=== PATIENT | female | born 1980 | race Caucasian/White ===

== ENCOUNTER 2016-09-10 11:26 | Emergency (ER) | payer MEDICAID ==
[~2016-09-10] VITALS: Ht 162.6 cm; Wt 75.0 kg
[2016-09-10 11:33] VITALS: Ht 162.6 cm; Wt 75.0 kg
[2016-09-10] MEDS ORDERED: HYDROmorphONE 1 MG/ML SYG IV STA (12:20)
[2016-09-10] MEDS ORDERED: ONDANSETRON 4 MG INJ IV STA (13:01)
[2016-09-10 13:05] LABS: ALBUMIN 4.3 g/dl (3.3-4.9); BASOPHILS % 0.3 % (0.0-2.0); HEMOGLOBIN 13.5 g/dl (12.0-16.0); LYMPHOCYTES # 3.3 10^3/ul (0.8-2.9); LYMPHOCYTES % 27.9 % (15.0-51.0); MEAN CORPUSCULAR HEMOGLOBIN 29.7 pg (29.0-33.0); MEAN CORPUSCULAR HGB CONC 33.8 g/dl (32.0-37.0); MEAN CORPUSCULAR VOLUME 87.9 fl (82.0-101.0); MEAN PLATELET VOLUME 9.5 fl (7.4-10.4); MONOCYTE # 0.5 10^3/ul (0.3-0.9); MONOCYTES % 4.5 % (0.0-11.0); NEUTROPHILS % 67.3 % (39.0-77.0); PLATELET COUNT 228 10^3/UL (140-440); PROTIME 13.2 Sec (12.2-14.2); RED BLOOD COUNT 4.55 10^6/ul (4.20-5.40); RED CELL DISTRIBUTION WIDTH 16.2 % (11.5-14.5); UNCORRECTED WBC 11.9 10^3/ul (4.8-10.8); WHITE BLOOD COUNT 11.9 10^3/ul (4.8-10.8)
[2016-09-10 13:06] LABS: PARTIAL THROMBOPLASTIN TIME 21.7 Sec (25.0-35.0); POTASSIUM 3.9 mmol/L (3.5-5.1)
[2016-09-10 13:08] LABS: ALBUMIN/GLOBULIN RATIO 1.16; BILIRUBIN,INDIRECT 0.3 mg/dl (0-1.1); BILIRUBIN,TOTAL 0.3 mg/dl (0.2-1.3); CREATININE 0.53 mg/dl (0.44-1.00)
[2016-09-10 13:09] LABS: CALCIUM 9.1 mg/dl (8.4-10.2)
[2016-09-10 13:29] LABS: CONDITION 1; LH ANALYZER COMMENTS 1
[2016-09-10] MEDS ORDERED: IOHEXOL 300MG/ML 150 ML BTL ONE (15:47)
[2016-09-10] MEDS ORDERED: SOD CHLORIDE 0.9% 100 ML ONE (15:47)
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
--- NOTE | 2016-09-10 16:24 | RADRPT ---
PROCEDURE: CT Lumbar Spine with contrast. CLINICAL INDICATION: 36-year-old female with lumbar spine pain status post epidural. TECHNIQUE: The study was performed on a multislice multidetector CT scanner. Spiral axial 1 mm im ages were obtained through the lumbar spine with intravenous contrast. 100 cc of Omnipaque-300 was u tilized without complication. Sagittal and coronal reformations were created from the raw axial van a. The images were reviewed on a PACS workstation. RADIATION DOSE: CTDIvol: 24.4 mGyDLP: 684.0 mGy-cm COMPARISON: No prior studies are available for comparison. FINDINGS: The alignment of the lumbar spine is normal. No vertebral body subluxation is seen. The interverte bral discs are normal in height. The vertebral body heights and marrow density are normal. There i s subtle enhancement involving the ventral aspect of the spinal canal, likely related to venous plex us, as it is seen at all levels. No definite soft tissue swelling or evidence of abscess is seen. The paraspinal soft tissues unremarkable. No significant paraspinal soft tissue swelling. L1-L2: The posterior margin of the disc is normal in appearance. No significant disc bulge or prot rusion is evident. The central canal and neural foramina are adequately patent. L2-L3: The posterior margin of the disc is normal in appearance. No significant disc bulge or prot rusion is evident. The central canal and neural foramina are adequately patent. L3-L4: The posterior margin of the disc is normal in appearance. No significant disc bulge or prot rusion is evident. The central canal and neural foramina are adequately patent. L4-L5: The posterior margin of the disc is normal in appearance. No significant disc bulge or prot rusion is evident. The central canal and neural foramina are adequately patent. L5-S1: The posterior margin of the disc is normal in appearance. No significant disc bulge or prot rusion is evident. The central canal and neural foramina are adequately patent. IMPRESSION: 1. Mild venous enhancement involving the Ayaka's plexus at each vertebral level, without definite evidence of epidural hemorrhage/infection. This is most likely benign, normal enhancement, though u nable to exclude abnormal underlying enhancement. MRI with and without contrast would be helpful fo r evaluation of inflammatory lesions in these regions. 2. Otherwise, normal CT of the lumbar spine. No evidence of fracture or significant degenerative di sc disease. RPTAT: DD .Balbir Boyer MD, MD Date Time Electronically viewed and signed by .Balbir Boyer MD, MD on 09/10/2016 16:23 .S/
[2016-09-10] MEDS ORDERED: CARISOPRODOL 350 MG TAB PO ONE (16:30)
[2016-09-10] MEDS ORDERED: CARI350T PO (16:31)
[2016-09-10 16:54] VITALS: BP 128/68; PULSE 94; RESP 18; TEMP 98.3
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
== END 2016-09-10 17:27 | disposition home or self-care (01) ==
LOC: FTE 11:26
DX: R51 Headache (principal); M54.2 Cervicalgia; M54.5 Low back pain
CPT/HCPCS: 36415; 72131; 80053; 85025; 85610; 85730; 96374; 96375; J1170; J2405; Q9967; Z7502; Z7610